=== PATIENT | male | born 1970 | race Caucasian/White ===

== ENCOUNTER 2018-06-08 00:42 | Emergency (ER) | payer SELFPAY ==
[~2018-06-08] VITALS: Ht 172.7 cm; Wt 74.9 kg
[2018-06-08 00:56] VITALS: BP 103/64
--- NOTE | 2018-06-08 01:00 | NUR ---
FIRST CONTACT WITH PT. PT C/O RIGHT EYE PAIN/IRRITATION. PT STATES "I GOT SOMETHING IN IT WHILE CUTTING BARK." NO DISCHARGE/VISION CHANGE NOTED. PT'S AOX4. RESPS EVEN AND UNLABORED. EDMD AT BEDSIDE TO ASSESS.
[2018-06-08] MEDS ORDERED: PROPARACAINE OPHTH 0.5%, 15ML ONE (01:05)
== END 2018-06-08 01:39 | disposition home or self-care (01) ==
LOC: ED 01:00
DX: S05.01XA Injury of conjunctiva and corneal abrasion without foreign body, right eye, initial encounter (principal); X58.XXXA Exposure to other specified factors, initial encounter; Y93.89 Activity, other specified; Y92.89 Other specified places as the place of occurrence of the external cause; Y99.8 Other external cause status
CPT/HCPCS: 99283